=== PATIENT | male | born 1955 | race Two or more races ===

== ENCOUNTER 2018-06-11 14:55 | Emergency (ER) | payer MEDICAID ==
[~2018-06-11] VITALS: Ht 182.9 cm; Wt 82.0 kg
[2018-06-11] MEDS ORDERED: CEFAZOLIN 1000MG PREMIX 50 ML IV ONE (16:45)
[2018-06-11] MEDS: VANCOMYCIN 1 G PREMIX 200 ML IV SCH ×2 (17:07→17:11)
[2018-06-11 17:33] LABS: BASOPHILS % 1.2 % (0.0-2.0); EOSINOPHILS % 0.7 % (0.0-5.0); HEMATOCRIT. 41.6 % (42.0-52.0); HEMOGLOBIN. 14.3 g/dL (14.0-18.0); LYMPHOCYTES % 33.2 % (20.0-50.0); MEAN CORPUSCULAR HEMOGLOBIN 31.6 pg (28.0-32.0); MEAN CORPUSCULAR VOLUME 92.1 fL (80.0-94.0); MEAN PLATELET VOLUME 7.8 fl (7.4-10.4); MONOCYTES % 10.7 % (2.0-8.0); NEUTROPHILS % 54.2 % (40.0-76.0); PLATELET 234 x1000/uL (130-400); RED BLOOD CELL COUNT 4.51 mill/uL (4.7-6.1); RED CELL DISTRIBUTION WIDTH 13.5 % (11.6-14.6)
[2018-06-11 17:40] LABS: CHLORIDE 105 mEq/L (98-107)
[2018-06-11] MEDS ORDERED: IOHEXOL-300 100 ML BOTTLE ONE ×2 (19:28→19:29)
[2018-06-11 19:45] VITALS: BP 175/90
== END 2018-06-11 19:46 | disposition home or self-care (01) ==
LOC: ER 14:55
DX: L02.01 Cutaneous abscess of face (principal)
CPT/HCPCS: 36415; 70487; 80053; 85025; 96365; 96368; 99284; J0690; J3370; Q9967

== ENCOUNTER 2022-03-02 15:55 | Emergency (ER) | payer MEDICAID ==
[~2022-03-02] VITALS: Ht 185.4 cm; Wt 95.5 kg
[2022-03-02 16:52] VITALS: BP 166/88
== END 2022-03-02 22:20 | disposition home or self-care (01) ==
LOC: ER 15:55
DX: H53.2 Diplopia (principal)
CPT/HCPCS: 99281